=== PATIENT | male | born 1965 | race Caucasian/White ===

== ENCOUNTER 2016-04-11 15:35 | Outpatient (CLI) | payer OTHER ==
[2016-04-11] MEDS ORDERED: SODIUM CHLORIDE 0.9% 1000ML 1,000 ML IVS ONE ×2 (15:47→15:48)
[2016-04-11 15:52] VITALS: BP 158/99; TEMP 98; O2SAT 98
== END 2016-04-11 17:42 | disposition home or self-care (01) ==
LOC: TXRM 15:35
PROVIDERS: ATTEND Family Medicine
DX: K52.9 Noninfective gastroenteritis and colitis, unspecified (principal)
CPT/HCPCS: 96360; J7030

== ENCOUNTER 2017-03-29 18:50 | Emergency (ER) | payer OTHER ==
--- NOTE | 2017-03-29 19:07 | ED.PDOC ---
History of Present Illness - General Chief Complaint: General Stated Complaint: H/A-- HTN Time Seen by Provider: 03/29/17 19:05 Source: patient Exam Limitations: no limitations - History of Present Illness Initial Comments: Irving Gonzales 51 y/o male with history of DM1 and HTN stated had elevated blood pressure the last 2 days with mild headache and chest pressure which he stated went away but his blood pressure remains elevated. No blurry vision,no chest pains,no nausea/vomiting. Timing/Duration: other - see hpi Severity: moderate Improving Factors: nothing Worsening Factors: nothing Associated Symptoms: other - see hpi Allergies/Adverse Reactions: Allergies Penicillins Allergy (Verified 03/29/17 20:26) Home Medications: Ambulatory Orders Amlodipine Besylate [Norvasc] 10 mg PO DAILY 09/29/13 Insulin Glargine [Lantus] 32 unit SC DAILY 09/29/13 Insulin Lispro (Human) [Humalog] 1 - 20 unit SC QID PRN 09/29/13 Quinapril HCl [Accupril] 40 mg PO DAILY 09/29/13 Review of Systems - Review of Systems Constitutional: States: no symptoms reported EENTM: States: no symptoms reported Respiratory: States: no symptoms reported Cardiology: States: see HPI Gastrointestinal/Abdominal: States: no symptoms reported Genitourinary: States: no symptoms reported Musculoskeletal: States: no symptoms reported Skin: States: no symptoms reported Neurological: States: no symptoms reported All other Systems: Reviewed and Negative, No Change from Baseline Past Medical History (General) - Patient Medical History Hx Cardiac Disorders: Yes - CAD Hx Hypertension: Yes Hx Diabetes: Yes Surgical History: other - cardiac stents,orif-shoulder right and left leg - Vaccination History Hx Tetanus, Diphtheria Vaccination: No Hx Influenza Vaccination: No - Social History Hx Tobacco Use: No Hx Alcohol Use: No Hx Substance Use: No Hx Physical Abuse: No Hx Emotional Abuse: No Hx Suspected Abuse: No Family Medical History - Family History Mother Living Status: Hx Family Hypertension: Yes - multiple family members Hx Cardiac Disease: Yes - multiple family members Hx Family Diabetes: Yes - several family members Father Living Status: Hx Family Cancer: Yes Physical Exam - Physical Exam General Appearance: Alert, Comfortable, No apparent distress Eye Exam: bilateral normal Ears, Nose, Throat: hearing grossly normal, normal ENT inspection Neck: non-tender, full range of motion, supple Respiratory: lungs clear, normal breath sounds, no respiratory distress Cardiovascular/Chest: normal peripheral pulses, regular rate, rhythm, no murmur Peripheral Pulses: radial,right: 2+, radial,left: 2+ Gastrointestinal/Abdominal: non tender, soft Neurologic: no motor/sensory deficits, alert, oriented x 3 Skin Exam: normal color, warm/dry Progress - Progress Progress: 03/29/17 20:23 Last Vital Signs Temp 97.6 F 03/29/17 20:13 Pulse 76 03/29/17 20:13 Resp 20 03/29/17 20:13 BP 173/97 03/29/17 20:13 Pulse Ox 96 03/29/17 20:13 Vital Signs - 24 hr 03/29/17 03/29/17 03/29/17 19:05 19:06 20:13 Temperature 98.5 F 97.6 F Pulse Rate [ 77 76 monitor] Respiratory 20 20 Rate Blood Pressure 198/117 171/115 173/97 [monitor] O2 Sat by Pulse 98 96 Oximetry - Results/Orders Results/Orders: Laboratory Tests 03/29/17 03/29/17 03/29/17 17:55 19:50 20:40 WBC 7.3 RBC 5.56 Hgb 16.2 Hct 47.4 MCV 85.2 MCH 29.1 MCHC 34.1 RDW 14.4 Plt Count 185 MPV 9.4 Absolute Neuts (auto) 4.80 Absolute Lymphs (auto) 1.60 Absolute Monos (auto) 0.70 Absolute Eos (auto) 0.20 Absolute Basos (auto) 0.00 Neutrophils % 66.0 Lymphocytes % 21.4 Monocytes % 9.0 Eosinophils % 3.3 Basophils % 0.3 PT 10.6 INR 0.940 PTT (SP) 28.9 Sodium 138 Potassium 4.0 Chloride 105 Carbon Dioxide 23 Anion Gap 14.0 BUN 16 Creatinine 0.90 BUN/Creatinine Ratio 17.8 Random Glucose 281 H Serum Osmolality 287.0 Calcium 9.4 Magnesium 1.9 Total Bilirubin 0.6 Direct Bilirubin 0.1 Indirect Bilirubin 0.5 AST 23 ALT 28 Alkaline Phosphatase 121 Creatine Kinase 104 CK-MB (CK-2) 2.4 CK-MB (CK-2) % Not Reportable Troponin I 0.03 0.02 Serum Total Protein 7.6 Albumin 4.3 Urine Color Yellow Urine Appearance Clear Urine pH 6.0 Ur Specific [place] 1.025 Urine Protein Negative Urine Glucose (UA) >=1000 H Urine Ketones Negative Urine Blood Trace-intact H Urine Nitrite Negative Urine Bilirubin Negative Urine Urobilinogen 0.2 Ur Leukocyte Esterase Negative Urine RBC 0-1 Urine WBC 0-1 Ur Epithelial Cells 0 Urine Bacteria 0 Urine Mucus Trace Blood pressure on downward trend recommended additional blood pressure medication but prefers to see his cloth classer in [place] this coming Friday.Patient asymptomatic.Also mentioned about his elevated blood sugar stated needs to go home and get his insulin shot for tonight. - EKG/XRAY/CT EKG: Sinus, no ST T wave changes Comments: heart rate-75 Departure - Departure Clinical Impression: Uncontrolled hypertension, Hyperglycemia due to type 1 diabetes mellitus Time of Disposition: 21:40 Disposition: Discharge to Home or Self Care Condition: Good Departure Forms: ED Discharge - Pt. Copy, Patient Portal Self Enrollment Referrals: González Pineda MD [Primary Care Provider] - 1-2 Weeks Home Medications: Ambulatory Orders Amlodipine Besylate [Norvasc] 10 mg PO DAILY 09/29/13 Insulin Glargine [Lantus] 32 unit SC DAILY 09/29/13 Insulin Lispro (Human) [Humalog] 1 - 20 unit SC QID PRN 09/29/13 Quinapril HCl [Accupril] 40 mg PO DAILY 09/29/13 Additional Instructions: Continue with all home medications;RETURN TO EMERGENCY ROOM NEEDED;Follow up with your cloth classer 03/31/2017
[2017-03-29] MEDS ORDERED: cloNIDine HCL 0.1 MG TAB PO ONE (19:16)
[2017-03-29] MEDS ORDERED: LABETALOL INJ 5 MG/ML VIAL IV ONE (19:18)
[2017-03-29] MEDS ORDERED: METOPROLOL SUCCINATE XL 50 MG TAB PO ONE (19:50)
[2017-03-29 20:14] VITALS: O2SAT 96
[2017-03-29 21:47] VITALS: BP 162/92; TEMP 97.2
== END 2017-03-29 21:48 | disposition home or self-care (01) ==
LOC: ER 18:50
DX: E10.65 Type 1 diabetes mellitus with hyperglycemia (principal); I10 Essential (primary) hypertension; I25.10 Atherosclerotic heart disease of native coronary artery without angina pectoris; Z98.61 Coronary angioplasty status; Z79.4 Long term (current) use of insulin; Z79.899 Other long term (current) drug therapy; Z88.0 Allergy status to penicillin

== ENCOUNTER → 2017-08-21 | Outpatient (CLI) | payer OTHER ==
--- NOTE | 2017-08-21 14:55 | US ---
EXAM DESCRIPTION: Soft Tissue,Extremity CLINICAL HISTORY: 51 years Male, HEMATOMA OF LOWER LEG COMPARISON: None. TECHNIQUE: Multiple transverse and longitudinal static sonographic images of the left midcalf in the palpable area of concern were obtained. FINDINGS: There is a 2.9 x 0.8 x 2.3 cm fluid collection in the palpable area of concern of the left midcalf. No internal vascularity is identified. This most likely represents a hematoma. IMPRESSION: 2.9 x 0.8 x 2.3 cm fluid collection with no internal vascularity is noted in the palpable area of concern of the left mid calf. This most likely represents a hematoma. Electronically signed by: Alessia Kenny MD 08/21/2017 2:53 PM CDT
== END ==
LOC: US 13:30
PROVIDERS: ATTEND Family Medicine
DX: S80.12XA Contusion of left lower leg, initial encounter (principal)

== ENCOUNTER 2018-04-09 08:32 | Emergency (ER) | payer OTHER ==
[2018-04-09 09:02] VITALS: TEMP 97
[2018-04-09] MEDS ORDERED: ASPIRIN (CHEWABLE) 81 MG TAB PO ONE (09:04)
--- NOTE | 2018-04-09 09:07 | ED.PDOC ---
History of Present Illness - General Chief Complaint: General Stated Complaint: Chest pain may be related to injury Time Seen by Provider: 04/09/18 08:55 Source: patient Exam Limitations: no limitations - History of Present Illness Initial Comments: Patient presents with chest pain for two weeks. It started after he fell from a horse and struck his left chest. He has had pain there since that has improved. In the last 24 hours, the pain started radiating to the sternum. He says it feels like pressure. Constant. No exacerbating nor alleviating factors. No associated symptoms. He says it feels similar to when he had his AMI in 2017 for which he received 2 stints. He got another cardiac stent in 2018 after a cardiac evaluation. No other complaints. Timing/Duration: other - 24 hours for sternal pain, 2 weeks for right sided chest pain Severity: moderate Improving Factors: nothing Worsening Factors: nothing Associated Symptoms: denies symptoms Allergies/Adverse Reactions: Allergies Penicillins Allergy (Verified 04/09/18 09:09) Home Medications: Ambulatory Orders Amlodipine Besylate [Norvasc] 5 mg PO DAILY 09/29/13 Insulin Lispro (Human) [Humalog] 1 - 20 unit SC QID PRN 09/29/13 Aspirin [Baby Aspirin] 81 mg PO DAILY 04/09/18 Atorvastatin Calcium [Lipitor] 80 mg PO DAILY 04/09/18 Carvedilol 6.25 mg PO BID 04/09/18 Irbesartan 300 mg PO DAILY 04/09/18 Pantoprazole Sodium 40 mg PO BID 04/09/18 Ticagrelor [Brilinta] 60 mg PO DAILY 04/09/18 Review of Systems - Review of Systems Constitutional: States: no symptoms reported EENTM: States: no symptoms reported Respiratory: States: no symptoms reported Cardiology: States: see HPI Gastrointestinal/Abdominal: States: no symptoms reported Genitourinary: States: no symptoms reported Musculoskeletal: States: see HPI Skin: States: no symptoms reported Neurological: States: no symptoms reported Endocrine: States: no symptoms reported Hematologic/Lymphatic: States: no symptoms reported Past Medical History (General) - Patient Medical History Hx Seizures: No Hx Dementia: No Hx Asthma: No Hx of COPD: No Hx Cardiac Disorders: Yes - Hx of [place] Hx Congestive Heart Failure: Yes - 3 stents placed Hx Pacemaker: No Hx Hypertension: Yes Hx Thyroid Disease: No Hx Diabetes: Yes Hx Gastroesophageal Reflux: Yes Hx Renal Disease: No Hx Cancer: No Hx of HIV: No Hx Hepatitis C: No Hx MRSA: No Surgical History: other - Vaccination History Hx Tetanus, Diphtheria Vaccination: No Hx Influenza Vaccination: No Hx Pneumococcal Vaccination: No Immunizations Up to Date: No - Social History Hx Tobacco Use: No Hx Alcohol Use: Yes Hx Substance Use: No Hx Substance Use Treatment: No Hx Depression: No Hx Physical Abuse: No Hx Emotional Abuse: No Hx Suspected Abuse: No - Female History Patient is a Female of Child Bearing Age (10 -59 yrs old): No Family Medical History - Family History Mother Living Status: Hx Family Hypertension: Yes - multiple family members Hx Cardiac Disease: Yes - multiple family members Hx Family Diabetes: Yes - several family members Father Living Status: Hx Family Cancer: Yes Physical Exam - Physical Exam General Appearance: Alert Eye Exam: bilateral normal Ears, Nose, Throat: normal ENT inspection Neck: non-tender, full range of motion, supple Respiratory: lungs clear, normal breath sounds Cardiovascular/Chest: regular rate, rhythm, no edema, other - TTP over the left chest at ribs 3-6 and over the sternum Gastrointestinal/Abdominal: normal bowel sounds, non tender, soft Back Exam: normal inspection, no CVA tenderness Extremity: normal range of motion, non-tender, normal inspection Neurologic: alert, normal mood/affect, oriented x 3 Skin Exam: normal color Lymphatic: no adenopathy Progress - Progress Progress: 04/09/18 12:05 Laboratory Tests 04/09/18 04/09/18 04/09/18 09:07 09:07 09:07 WBC 5.7 RBC 5.45 Hgb 16.3 Hct 48.3 MCV 88.6 MCH 29.9 MCHC 33.8 RDW 13.9 Plt Count 163 MPV 9.4 Absolute Neuts (auto) 4.30 Absolute Lymphs (auto) 0.70 L Absolute Monos (auto) 0.60 Absolute Eos (auto) 0.10 Absolute Basos (auto) 0.00 Neutrophils % 74.6 Lymphocytes % 12.3 L Monocytes % 10.3 H Eosinophils % 2.4 Basophils % 0.4 PT 9.7 INR 0.97 PTT (SP) 23.4 Sodium 135 Potassium 4.2 Chloride 102 Carbon Dioxide 24 Anion Gap 13.2 BUN 18 Creatinine 0.83 BUN/Creatinine Ratio 21.7 H Random Glucose 293 H Serum Osmolality 282.8 Calcium 9.3 Total Bilirubin 0.7 AST 23 ALT 29 Alkaline Phosphatase 136 H Creatine Kinase 72 CK-MB (CK-2) 2.0 CK-MB (CK-2) % 2.78 Troponin I < 0.02 B-Natriuretic Peptide 86.0 Serum Total Protein 7.2 Albumin 4.1 Globulin 3.1 Albumin/Globulin Ratio 1.3 04/09/18 11:20 WBC RBC Hgb Hct MCV MCH MCHC RDW Plt Count MPV Absolute Neuts (auto) Absolute Lymphs (auto) Absolute Monos (auto) Absolute Eos (auto) Absolute Basos (auto) Neutrophils % Lymphocytes % Monocytes % Eosinophils % Basophils % PT INR PTT (SP) Sodium Potassium Chloride Carbon Dioxide Anion Gap BUN Creatinine BUN/Creatinine Ratio Random Glucose Serum Osmolality Calcium Total Bilirubin AST ALT Alkaline Phosphatase Creatine Kinase CK-MB (CK-2) CK-MB (CK-2) % Troponin I < 0.02 B-Natriuretic Peptide Serum Total Protein Albumin Globulin Albumin/Globulin Ratio EKG read by me showed NSR with no ST changes nor T wave inversions. No LBBB. Troponin x 2 were negative. I spoke with the patient's window framer, Dr. Dwight Pizarro, and an appointment was set up for the patient at 9 a.m. tomorrow. The patient agreed to go to the appointment. Care instructions given. E.R. warnings given. Questions were elicited and answered. Patient voiced understanding and agreement with the plan. Departure - Departure Clinical Impression: Chest pain Disposition: Discharge to Home or Self Care Condition: Good Departure Forms: ED Discharge - Pt. Copy, Patient Portal Self Enrollment Diet: other - as per your regular doctor Activity: increase activity as tolerated Referrals: González Pineda MD [Primary Care Provider] - 1-2 Weeks Home Medications: Ambulatory Orders Amlodipine Besylate [Norvasc] 5 mg PO DAILY 09/29/13 Insulin Lispro (Human) [Humalog] 1 - 20 unit SC QID PRN 09/29/13 Aspirin [Baby Aspirin] 81 mg PO DAILY 04/09/18 Atorvastatin Calcium [Lipitor] 80 mg PO DAILY 04/09/18 Carvedilol 6.25 mg PO BID 04/09/18 Irbesartan 300 mg PO DAILY 04/09/18 Pantoprazole Sodium 40 mg PO BID 04/09/18 Ticagrelor [Brilinta] 60 mg PO DAILY 04/09/18 Additional Instructions: See Dr. Pizarro at 9 a.m. in the morning as scheduled. Return to the E.R. sooner if symptoms worsen of you develop light headedness or shortness of breath.
[2018-04-09] MEDS ORDERED: NITROGLYCERIN 2% 1 GM UD TOP ONE (09:13)
--- NOTE | 2018-04-09 09:29 | RAD ---
EXAM DESCRIPTION: Chest,1 View CLINICAL HISTORY: 52 years Male, chest pain COMPARISON: None. TECHNIQUE: AP portable chest. FINDINGS: Fair expansion of the lungs is evident without consolidation, layering effusion, or large mass. Heart size and vascularity appear normal for AP technique and degree of inspiration. No gross bony, hilar, or mediastinal abnormalities are noted. Prior fixation of the proximal right humerus is noted IMPRESSION: Normal chest, one view Electronically signed by: Willie Cortez MD 04/09/2018 9:25 AM RADIO COMMUNICATIONS MECHANICIAN
--- NOTE | 2018-04-09 09:30 | RAD ---
EXAM DESCRIPTION: Ribs, right 3 Views CLINICAL HISTORY: 52 years Male, fall with rib pain COMPARISON: None. FINDINGS: Three views of the right ribs demonstrate no pneumothorax or hemothorax. No fracture or deformity or subcutaneous air or pleural hematoma is noted. No destructive process is seen. IMPRESSION: Negative right RIBS three views Electronically signed by: Willie Cortez MD 04/09/2018 9:27 AM HEALTH OUTREACH WORKER
[2018-04-09] MEDS ORDERED: KETOROLAC TROMETHAMINE INJ 30 MG/ML VIAL IM ONE (10:36)
[2018-04-09 12:29] VITALS: BP 123/80; O2SAT 96
== END 2018-04-09 12:18 | disposition home or self-care (01) ==
LOC: ER 08:32
DX: R07.9 Chest pain, unspecified (principal); I25.2 Old myocardial infarction; I50.9 Heart failure, unspecified; I10 Essential (primary) hypertension; E11.9 Type 2 diabetes mellitus without complications; K21.9 Gastro-esophageal reflux disease without esophagitis; Z95.5 Presence of coronary angioplasty implant and graft; Z79.899 Other long term (current) drug therapy; Z79.82 Long term (current) use of aspirin; Z79.4 Long term (current) use of insulin
CPT/HCPCS: 36415; 71045; 71101; 80053; 82550; 82553; 83880; 84484; 85025; 85610; 85730; 93005; J1885

== ENCOUNTER 2020-02-03 17:02 | Outpatient (CLI) | payer OTHER | END 2020-02-04 11:43 | disposition home or self-care (01) | LOC: INFRM 17:02 | PROVIDERS: ATTEND Family Medicine | DX: U07.1 COVID-19 (principal); I10 Essential (primary) hypertension; Z23 Encounter for immunization ==